=== PATIENT | male | born 1960 | race Caucasian/White ===

== ENCOUNTER 2024-12-28 09:46 | Observation (INO) | payer OTHER ==
[2024-12-28 12:10] LABS: ALT 65 U/L (4-49); African American GFR (CKD) 57 (>60 ml/min/1.73 sqM); Albumin 3.5 g/dL (3.5-5.0); Anion Gap 8 mmol/L; Blood Urea Nitrogen 37 mg/dL (9-20); Calcium 8.6 mg/dL (8.4-10.2); Carbon Dioxide 32 mmol/L (22-30); Chloride 93 mmol/L (98-107); Glucose 92 mg/dL (74-99); Non-African American GFR(CKD) 49 (>60 ml/min/1.73 sqM); Sodium 133 mmol/L (137-145); Total Bilirubin 1.8 mg/dL (0.2-1.3); Total Protein 6.5 g/dL (6.3-8.2)
[2024-12-28 12:13] LABS: AST 76 U/L (17-59); Alkaline Phosphatase 67 U/L (38-126); Potassium 3.9 mmol/L (3.5-5.1)
[2024-12-28 12:14] LABS: INR 1.1 (<1.2); Partial Thromboplastin Time 24.3 sec (22.0-30.0); Prothrombin Time 11.8 sec (10.0-12.5)
[2024-12-28 12:19] LABS: NT-Pro-B-Type Natriuretic Pept 22 pg/mL
[2024-12-28 12:31] LABS: Influenza A Detected (Not Detectd); Influenza B Not Detected (Not Detectd); RSV Not Detected (Not Detectd)
[2024-12-28 12:33] LABS: HCT 45.1 % (39.0-53.0); HGB 15.2 gm/dL (13.0-17.5); MCH 35.6 pg (25.0-35.0); MCHC 33.7 g/dL (31.0-37.0); MCV 105.6 fL (80.0-100.0); Macrocytosis Slight; RBC 4.27 m/uL (4.30-5.90); RDW 12.1 % (11.5-15.5)
--- NOTE | 2024-12-28 13:16 | CT ---
EXAMINATION TYPE: CT brain wo con DATE OF EXAM: 12/28/2024 1:08 PM COMPARISON: None. CLINICAL INDICATION: Male, 64 years old with history of hallucinations, balance issue, HALLUCINATIONS , BALANCE ISSUES TECHNIQUE: Brain: Axial CT images of the brain were obtained with coronal and sagittal reformats created and rev iewed. Contrast used: None. Oral contrast used: None. CT DLP: 1319.10 mGycm, Automated exposure control for dose reduction was used. FINDINGS: Brain: Extra-axial spaces: No abnormal extra-axial fluid collections. Ventricular system: Dilatation in proportion to cerebral atrophy. Cerebral parenchyma: Cerebral atrophy. No acute intraparenchymal hemorrhage or mass effect. The méndez -white junction is well differentiated. Scattered hypoattenuating areas are seen within the white mat ter. Cerebellum: Unremarkable. Mass effect: No evidence of midline shift. Intracranial vasculature: Atherosclerotic calcifications of the intracranial vessels. Soft tissues: Normal. Calvarium/osseous structures: No depressed skull fracture. Paranasal sinuses and mastoid air cells: Mild scattered paranasal sinus disease. Visualized orbits: Orbital contents are intact. IMPRESSION: 1. No acute intracranial process. 2. Nonspecific white matter changes, likely secondary to chronic small vessel ischemic disease. [facility], , 12/28/2024 1:13 PM
--- NOTE | 2024-12-28 13:39 | XR ---
EXAMINATION TYPE: XR chest 2V DATE OF EXAM: 12/28/2024 1:35 PM COMPARISON: None TECHNIQUE: XR chest 2V Frontal and lateral views of the chest. CLINICAL INDICATION:Male, 64 years old with history of difficulty breathing; FINDINGS: Lungs/Pleura: There is no evidence of pleural effusion, focal consolidation, or pneumothorax. Pulmonary vascularity: Unremarkable. Heart/mediastinum: Cardiomediastinal silhouette is prominent in size. Musculoskeletal: No acute osseous pathology. IMPRESSION: No acute cardiopulmonary disease/process. [facility], , 12/28/2024 1:36 PM
[2024-12-28 14:35] LABS: Eosinophils # (M) 0.18 k/uL (0-0.7); Lymphocytes # (M) 0.69 k/uL (1.0-4.8); Monocytes # (M) 0.42 k/uL (0-1.0); Neutrophils # (M) 1.71 k/uL (1.3-7.7); Neutrophils % (M) 57 %; Nucleated Red Blood Cells 0 /100 WBC (0-0); Total Cells Counted 100
[2024-12-28 14:39] LABS: Platelet Count 58 k/uL (150-450)
[2024-12-28] MEDS ORDERED: ACETAMINOPHEN TAB 325 MG TAB PO PRN (15:16)
[2024-12-28] MEDS ORDERED: NALOXONE 0.4 MG/ML 1 ML VIAL IV PRN (15:16)
--- NOTE | 2024-12-28 15:16 | ED ---
SOB HPI - General Chief Complaint: Shortness of Breath Stated Complaint: confusion Time Seen by Provider: 12/28/24 10:00 Source: patient, EMS Mode of arrival: EMS Limitations: no limitations - History of Present Illness Initial Comments: 64-year-old male with past medical history of alcohol abuse, diabetes who presents the emergency department from [place]. Patient is coming in with weakness, altered mental status and cold symptoms. Patient reports for the past day he has had cough, congestion and shortness of breath. He is also reported to weakness, balance issues and falling. Patient admits that he last drank 1 week and 1 day ago. He has been having visual hallucinations. He denies fevers. No head injuries. No headache. Oxygen was reported to be 90% with increased work of breathing. Patient denies nausea, vomiting or diarrhea. No other alleviating, precipitating or modifying factors - Related Data Home Medications Medication Instructions Recorded Confirmed Acetaminophen Tab [Tylenol] 650 mg PO Q6H PRN 12/28/24 12/28/24 Atorvastatin [Lipitor] 10 mg PO HS 12/28/24 12/28/24 Calcium Phos/D3/Magnesium/Zinc 1 tab PO TID PRN 12/28/24 12/28/24 [Dvszjbw-Lia-Hfbs-Vitamin D3] Chlorpheniramine Maleate 4 mg PO Q4H PRN 12/28/24 12/28/24 [Chlor-Trimeton] Citalopram Hydrobromide [CeleXA] 40 mg PO DAILY 12/28/24 12/28/24 Gabapentin See Taper PO DIRECTED 12/28/24 12/28/24 Gabapentin [Neurontin] 300 mg PO DIRECTED 12/28/24 12/28/24 Ibuprofen [Motrin Ib] 600 mg PO Q6H PRN 12/28/24 12/28/24 LORazepam [Ativan] 1 - 2 mg PO Q4-6H PRN 12/28/24 12/28/24 Loperamide [Imodium] 4 mg PO QID PRN 12/28/24 12/28/24 Losartan-Hctz 50-12.5 mg [Hyzaar 1 tab PO DAILY 12/28/24 12/28/24 50-12.5] Melatonin 10 mg PO HS 12/28/24 12/28/24 Multivitamins, Thera [Multivitamin 1 tab PO DAILY 12/28/24 12/28/24 (formulary)] Mylanta 30 ml PO Q4H PRN 12/28/24 12/28/24 Thiamine [Vitamin B-1] 100 mg PO DAILY 12/28/24 12/28/24 atenoloL [Tenormin] 50 mg PO BID 12/28/24 12/28/24 busPIRone HCl [Buspar] 5 mg PO TID 12/28/24 12/28/24 metFORMIN HCL 1,000 mg PO BID 12/28/24 12/28/24 ondansetron HCL [Zofran] 8 mg PO Q6H PRN 12/28/24 12/28/24 traZODone HCL [Desyrel] 50 - 150 mg PO HS PRN 12/28/24 12/28/24 Previous Rx's Medication Instructions Recorded Albuterol Inhaler [Ventolin Hfa 1 - 2 puff INHALATION Q6H PRN #1 12/29/24 Inhaler] each predniSONE [Deltasone] 40 mg PO DAILY 5 Days #10 tab 12/29/24 Ipratropium-Albuterol Nebulize 3 ml INHALATION RT-Q2H PRN each 12/31/24 [Duoneb 0.5 mg-3 mg/3 ml Soln] Oseltamivir [Tamiflu] 75 mg PO BID #3 cap 12/31/24 Allergies Allergy/AdvReac Type Severity Reaction Status Date / Time No Known Allergies Allergy Verified 12/28/24 10:26 Review of Systems ROS Statement: Those systems with pertinent positive or pertinent negative responses have been documented in the HPI. ROS Other: All systems not noted in ROS Statement are negative. Past Medical History Past Medical History: Diabetes Mellitus Additional Past Medical History / Comment(s): DB type 2 History of Any Multi-Drug Resistant Organisms: None Reported Additional Past Surgical History / Comment(s): right ankle surgery. hernia Past Psychological History: Anxiety, Depression, PTSD Smoking Status: Never smoker Past Alcohol Use History: Heavy Past Drug Use History: Marijuana General Exam Limitations: no limitations General appearance: alert, other (Fatigued) Head exam: Present: atraumatic, normocephalic, normal inspection Eye exam: Present: normal appearance, PERRL, EOMI. Absent: scleral icterus, conjunctival injection, periorbital swelling ENT exam: Present: mucous membranes dry Respiratory exam: Present: wheezes Cardiovascular Exam: Present: regular rate, normal rhythm, normal heart sounds. Absent: systolic murmur, diastolic murmur, rubs, gallop, clicks GI/Abdominal exam: Present: soft, normal bowel sounds. Absent: distended, tenderness, guarding, rebound, rigid Psychiatric exam: Present: flat affect Skin exam: Present: warm, dry, intact, normal color. Absent: rash Course Vital Signs 12/28/24 12/28/24 12/28/24 09:50 10:03 10:06 Temperature 99.0 F Pulse Rate 84 82 Respiratory 16 24 22 Rate Blood Pressure 105/67 121/78 O2 Sat by Pulse 96 96 Oximetry 12/28/24 12/28/24 12/28/24 11:39 14:25 15:46 Temperature 98.6 F 98.9 F Pulse Rate 79 80 92 Respiratory 17 16 17 Rate Blood Pressure 116/69 114/71 O2 Sat by Pulse 93 L 95 91 L Oximetry 12/28/24 12/28/24 12/28/24 17:00 17:08 18:26 Temperature Pulse Rate 80 84 81 Respiratory 16 Rate Blood Pressure 113/61 O2 Sat by Pulse 91 L Oximetry 12/28/24 12/28/24 12/28/24 19:54 20:00 20:51 Temperature Pulse Rate 84 81 98 Respiratory 18 18 20 Rate Blood Pressure 120/85 O2 Sat by Pulse 92 L Oximetry 12/28/24 22:07 Temperature 97.3 F L Pulse Rate 82 Respiratory 18 Rate Blood Pressure 156/86 O2 Sat by Pulse 93 L Oximetry Medical Decision Making - Medical Decision Making Was pt. sent in by a medical professional or institution (, PA, LEAD MANUFACTURING ENGINEERING TECH, urgent care, hospital, or correction...) When possible be specific @ -Patient sent in from [place] Did you speak to anyone other than the patient for history (EMS, parent, family, police, friend...)? What history was obtained from this source @ -Spoke with EMS for history Did you review nursing and triage notes (agree or disagree)? Why? @ -I reviewed and agree with nursing and triage notes Were old charts reviewed (outside hosp., previous admission, EMS record, old EKG, old radiological studies, urgent care reports/EKG's, correction records)? Report findings @ -Reviewed the paperwork that accompanied the patient from [place] Differential Diagnosis (chest pain, altered mental status, abdominal pain women, abdominal pain men, vaginal bleeding, weakness, fever, dyspnea, syncope, headache, dizziness, GI bleed, back pain, seizure, CVA, palpatations, mental health, musculoskeletal)? @ -Differential Dyspnea: Coronary syndrome, arrhythmia, tamponade, asthma, COPD, pulmonary embolism, pneumonia, pneumothorax, pulmonary effusion, anaphylaxis, diabetic ketoacidosis, flailed chest, pulmonary contusion, diaphragmatic rupture, anemia, neuromuscular, this is not meant to be an all-inclusive list. EKG interpreted by me (3pts min.). @ -Yes and demonstrates sinus rhythm with a rate of 80. FL interval 168. QRS 93. QTc of 418. No acute ST segment elevations or depressions X-rays interpreted by me (1pt min.). @ -Yes which demonstrates no acute process CT interpreted by me (1pt min.). @ -Yes which demonstrates no acute process U/S interpreted by me (1pt. min.). @ -None done What testing was considered but not performed or refused? (CT, X-rays, U/S, labs)? Why? @ -None What meds were considered but not given or refused? Why? @ -None Did you discuss the management of the patient with other professionals (mikayla toledo i.eMelissa Bravo, PA, LEAD MANUFACTURING ENGINEERING [employer]CH, lab, RT, psych nurse, social work lecturer, orthotic fitter, teacher, career services officer, family preservation caseworker)? Give summary @ -Spoke with John [facility] for admission Was smoking cessation discussed for >3mins.? @ -No Was critical care preformed (if so, how long)? @ -No Were there social determinants of health that impacted care today? How? (Homelessness, low income, unemployed, alcoholism, drug addiction, transportation, low edu. Level, literacy, decrease access to med. care, residential, rehab)? @ -Patient is currently in rehab Was there de-escalation of care discussed even if they declined (Discuss DNR or withdrawal of care, Hospice)? DNR status @ -No What co-morbidities impacted this encounter? (DM, HTN, Smoking, COPD, CAD, Cancer, CVA, ARF, Chemo, Hep., AIDS, mental health diagnosis, sleep apnea, morbid obesity)? @ -Alcohol abuse, depression Was patient admitted / discharged? Hospital course, mention meds given and route, prescriptions, significant lab abnormalities, going to OR and other pertinent info. @ -Upon arrival patient seen and evaluated in bed 20. Thorough history and physical exam was performed. He is reporting hallucinations and paperwork states altered mental status. Patient is able to provide an adequate history. IV is established and laboratory studies are conducted. Chest x-ray was performed. CT the brain was performed as the patient is reporting h allucinations and ataxia. Laboratory studies do reveal that the patient is influenza A positive. He was given Tamiflu, breathing treatments and steroids. I do feel that the patient should be admitted for at least overnight observation for his work of breathing. Patient was agreeable to this. Spoke with John from [facility] for the admission Undiagnosed new problem with uncertain prognosis? @ -No Drug Therapy requiring intensive monitoring for toxicity (Heparin, Nitro, Insulin, Cardizem)? @ -No Were any procedures done? @ -No Diagnosis/symptom? @ -Acute respiratory insufficiency, influenza A, history of EtOH abuse with withdrawal Acute, or Chronic, or Acute on Chronic? @ -Acute Uncomplicated (without systemic symptoms) or Complicated (systemic symptoms)? @ -Complicated Side effects of treatment? @ -No Exacerbation, Progression, or Severe Exacerbation? @ -No Poses a threat to life or bodily function? How? (Chest pain, [place], [place], pneumonia, PE, COPD, DKA, ARF, appy, cholecystitis, CVA, Diverticulitis, Homicidal, Suicidal, threat to staff... and all critical care pts) @ -No - Lab Data Result diagrams: 12/30/24 03:20 12/30/24 03:20 Lab Results 12/28/24 12/28/24 12/28/24 Range/Units 11:34 11:34 11:34 WBC 3.0 L (3.8-10.6) k/uL RBC 4.27 L (4.30-5.90) m/uL Hgb 15.2 (13.0-17.5) gm/dL Hct 45.1 (39.0-53.0) % MCV 105.6 H (80.0-100.0) fL MCH 35.6 H (25.0-35.0) pg MCHC 33.7 (31.0-37.0) g/dL RDW 12.1 (11.5-15.5) % Plt Count 58 L (150-450) k/uL MPV 10.0 Neutrophils % (Manual) 57 % Lymphocytes % (Manual) 23 % Monocytes % (Manual) 14 % Eosinophils % (Manual) 6 % Neutrophils # (Manual) 1.71 (1.3-7.7) k/uL Lymphocytes # (Manual) 0.69 L (1.0-4.8) k/uL Monocytes # (Manual) 0.42 (0-1.0) k/uL Eosinophils # (Manual) 0.18 (0-0.7) k/uL Nucleated RBCs 0 (0-0) /100 WBC Manual Slide Review Performed Macrocytosis Slight PT 11.8 (10.0-12.5) sec INR 1.1 (<1.2) APTT 24.3 (22.0-30.0) sec Sodium 133 L (137-145) mmol/L Potassium 3.9 (3.5-5.1) mmol/L Chloride 93 L (98-107) mmol/L Carbon Dioxide 32 H (22-30) mmol/L Anion Gap 8 mmol/L BUN 37 H (9-20) mg/dL Creatinine 1.49 H (0.66-1.25) mg/dL Est GFR (CKD-EPI)AfAm 57 (>60 ml/min/1.73 sqM) Est GFR (CKD-EPI)NonAf 49 (>60 ml/min/1.73 sqM) Glucose 92 (74-99) mg/dL Plasma Lactic Acid [place] (0.7-2.0) mmol/L Calcium 8.6 (8.4-10.2) mg/dL Total Bilirubin 1.8 H (0.2-1.3) mg/dL AST 76 H (17-59) U/L ALT 65 H (4-49) U/L Alkaline Phosphatase 67 (38-126) U/L Troponin I (0.000-0.034) ng/mL NT-Pro-B Natriuret Pep 22 pg/mL Total Protein 6.5 (6.3-8.2) g/dL Albumin 3.5 (3.5-5.0) g/dL Influenza Type A (PCR) (Not Detectd) Influenza Type B (PCR) (Not Detectd) RSV (PCR) (Not Detectd) SARS-CoV-2 (PCR) (Not Detectd) 12/28/24 12/28/24 12/28/24 Range/Units 11:34 11:34 11:34 WBC (3.8-10.6) k/uL RBC (4.30-5.90) m/uL Hgb (13.0-17.5) gm/dL Hct (39.0-53.0) % MCV (80.0-100.0) fL MCH (25.0-35.0) pg MCHC (31.0-37.0) g/dL RDW (11.5-15.5) % Plt Count (150-450) k/uL MPV Neutrophils % (Manual) % Lymphocytes % (Manual) % Monocytes % (Manual) % Eosinophils % (Manual) % Neutrophils # (Manual) (1.3-7.7) k/uL Lymphocytes # (Manual) (1.0-4.8) k/uL Monocytes # (Manual) (0-1.0) k/uL Eosinophils # (Manual) (0-0.7) k/uL Nucleated RBCs (0-0) /100 WBC Manual Slide Review Macrocytosis PT (10.0-12.5) sec INR (<1.2) APTT (22.0-30.0) sec Sodium (137-145) mmol/L Potassium (3.5-5.1) mmol/L Chloride (98-107) mmol/L Carbon Dioxide (22-30) mmol/L Anion Gap mmol/L BUN (9-20) mg/dL Creatinine (0.66-1.25) mg/dL Est GFR (CKD-EPI)AfAm (>60 ml/min/1.73 sqM) Est GFR (CKD-EPI)NonAf (>60 ml/min/1.73 sqM) Glucose (74-99) mg/dL Plasma Lactic Acid [place] 1.3 (0.7-2.0) mmol/L Calcium (8.4-10.2) mg/dL Total Bilirubin (0.2-1.3) mg/dL AST (17-59) U/L ALT (4-49) U/L Alkaline Phosphatase (38-126) U/L Troponin I <0.012 (0.000-0.034) ng/mL NT-Pro-B Natriuret Pep pg/mL Total Protein (6.3-8.2) g/dL Albumin (3.5-5.0) g/dL Influenza Type A (PCR) Detected A (Not Detectd) Influenza Type B (PCR) Not Detected (Not Detectd) RSV (PCR) Not Detected (Not Detectd) SARS-CoV-2 (PCR) Not Detected (Not Detectd) Disposition Clinical Impression: Influenza A, Acute respiratory insufficiency, Acute encephalopathy, Visual hallucinations Disposition: ADMITTED IP TO THIS HOSP Condition: Stable Is patient prescribed a controlled substance at d/c from ED?: No Time of Disposition: 15:16 Decision to Admit Reason: Admit from EC Decision Date: 12/28/24 Decision Time: 15:16
[2024-12-28] MEDS ORDERED: ONDANSETRON 4 MG TAB PO PRN (15:18)
[2024-12-28] MEDS: SODIUM CHLORIDE 0.9% 1,000 ML IV SCH (15:43)
[2024-12-28] MEDS: busPIRone HCl 5 MG TAB PO SCH (15:45)
[2024-12-28] MEDS: OSELTAMIVIR 75 MG CAP PO SCH (15:45)
[2024-12-28] MEDS: IPRATROPIUM-ALBUTEROL 3 ML NEB INHALATION SCH (17:00)
--- NOTE | 2024-12-28 17:42 | P.HPIM ---
History of Present Illness H&P Date: 12/28/24 History of present illness; 64-year-old man with PMH of alcohol abuse, hypertension, hyperlipidemia, anxiety/depression and bsw-nxemybx-paxcpntfz diabetes mellitus presents emergency department from [place]. He is complaining of worsening shortness of breath and flulike symptoms and associated weakness. He states he still began his chest congestion progressively worsened into more and more d ifficulty breathing. He endorses having had his last drink a little over a week ago. Prior to arrival his SpO2 was reported to have been 90% with increased work of breathing. On arrival he was found to be influenza A positive. He denies any fevers, head injuries, headache, nausea, vomiting or diarrhea. When seen at bedside today, he is sitting in the bed, breathing without the use of any supplemental oxygen saturating in the 90%'s. States that he has just "not been feeling well close" for the past few days. With no acute complaints at present time. Labratory review: -WBCs 3.0, hemoglobin 15.2, hematocrit 45.1, MCV 105.6, platelet 58; sodium 133, potassium 3.9, chloride 93, bicarb 32, BUN 37, creatinine 1.49, total bilirubin 1.8, AST 76, ALT 65, alkaline phosphatase 67; troponin <0.012, BNP 22 -Influenza A positive Imaging: -Chest x-ray done in the ER independently interpreted shows no increased pulmonary vascularity -Brain CT showed no acute intracranial process; nonspecific white matter changes likely secondary to chronic small vessel ischemic disease -EKG done in the ER showed heart rate of 80, sinus rhythm Vitals: On arrival: Blood pressure 105/67, heart rate 84, respiratory rate 16, SpO2 96% on 3 L nasal cannula Currently: Blood pressure 116/69, heart rate 79, respiratory rate 17, SpO2 95% on room air Patient admitted to internal medicine service REVIEW OF SYSTEMS: Pertinent positives and negatives noted in HPI. The rest of the 14-point review of systems is negative. Physical Exam: General: nontoxic, no distress, appears at stated age Derm: warm, dry, intact Head: atraumatic, normocephalic, symmetric Eyes: EOMI, anicteric sclera Mouth: no lip lesion, mucus membranes moist Cardiovascular: S1 S2 reg, no murmur, rubs, or gallops Lungs: Breath sounds heard bilaterally, diminished Abdominal: Minimal tenderness to palpation in the right lower quadrant Extremities: no gross muscle atrophy, no edema, no contractures Neuro: Alert, Oriented, CNII-XII grossly intact, gait normal Psych: well appearing, appropriate affect Assessment and plan 64-year-old man with PMH of alcohol abuse and olt-ovllubd-ahmqwxhhc diabetes mellitus presents with increasing shortness of breath and weakness. #Acute hypoxic respiratory failure, likely secondary to influenza A infection -Was noted to be saturating in the high 80slow 90% prior to arrival -On arrival placed on 3 L nasal cannula, saturations increased now on room air -Initiate Tamiflu 75 mg twice daily #Acute kidney injury #Hyponatremia #Hypochloremia -Creatinine 1.49, with no known baseline -Continue NS 75 cc/h -Hold home losartanHCTZ 50-12.5 mg -Continue to monitor BMP #Transaminitis -Total bilirubin 1.8, AST 76, ALT 60 -Gallbladder ultrasound ordered -Continue to monitor CMP #History of alcohol abuse #Macrocytosis, likely secondary to above #Leukopenia, likely secondary above #Thrombocytopenia, likely secondary to above - Give daily thiamine and folic acid and multivitamin - monitor daily electrolytes - cardiac monitoring #Non-insulin diabetes mellitus Holding oral diabetes medications Begin Accu-Cheks and low-dose sliding scale, monitor for hypoglycemia HbA1c pending Chronic: #Hypertension #Hyperlipidemia #Anxiety/depression -Resume home medications GI prophylaxis: None DVT prophylaxis: None The patient is admitted with an anticipated more than than 2 midnight stay for evaluation of CODE STATUS: Full code Discussed with: Patient Anticipated discharge place: Pending clinical course Dictation was produced using [employer] dictation software. please excuse any g rammatical, word or spelling errors. I have seen and evaluated the patient today. Discussed with the resident and agree with the residents finding and plan as documented in the resident's note. Changes highlighted in blue font. Past Medical History Past Medical History: Diabetes Mellitus Additional Past Medical History / Comment(s): DB type 2 History of Any Multi-Drug Resistant Organisms: None Reported Additional Past Surgical History / Comment(s): right ankle surgery. hernia Past Psychological History: Anxiety, Depression, PTSD Smoking Status: Never smoker Past Alcohol Use History: Heavy Past Drug Use History: Marijuana Medications and Allergies Home Medications Medication Instructions Recorded Confirmed Type Acetaminophen Tab [Tylenol] 650 mg PO Q6H PRN 12/28/24 12/28/24 History Atorvastatin [Lipitor] 10 mg PO HS 12/28/24 12/28/24 History Calcium Phos/D3/Magnesium/Zinc 1 tab PO TID PRN 12/28/24 12/28/24 History [Nlekrwy-Xti-Ercm-Vitamin D3] Chlorpheniramine Maleate 4 mg PO Q4H PRN 12/28/24 12/28/24 History [Chlor-Trimeton] Citalopram Hydrobromide [CeleXA] 40 mg PO DAILY 12/28/24 12/28/24 History Gabapentin See Taper PO DIRECTED 12/28/24 12/28/24 History Gabapentin [Neurontin] 300 mg PO DIRECTED 12/28/24 12/28/24 History Ibuprofen [Motrin Ib] 600 mg PO Q6H PRN 12/28/24 12/28/24 History LORazepam [Ativan] 1 - 2 mg PO Q4-6H PRN 12/28/24 12/28/24 History Loperamide [Imodium] 4 mg PO QID PRN 12/28/24 12/28/24 History Losartan-Hctz 50-12.5 mg [Hyzaar 1 tab PO DAILY 12/28/24 12/28/24 History 50-12.5] Melatonin 10 mg PO HS 12/28/24 12/28/24 History Multivitamins, Thera [Multivitamin 1 tab PO DAILY 12/28/24 12/28/24 History (formulary)] Mylanta 30 ml PO Q4H PRN 12/28/24 12/28/24 History Thiamine [Vitamin B-1] 100 mg PO DAILY 12/28/24 12/28/24 History atenoloL [Tenormin] 50 mg PO BID 12/28/24 12/28/24 History busPIRone HCl [Buspar] 5 mg PO TID 12/28/24 12/28/24 History metFORMIN HCL 1,000 mg PO BID 12/28/24 12/28/24 History ondansetron HCL [Zofran] 8 mg PO Q6H PRN 12/28/24 12/28/24 History traZODone HCL [Desyrel] 50 - 150 mg PO HS PRN 12/28/24 12/28/24 History Allergies Allergy/AdvReac Type Severity Reaction Status Date / Time No Known Allergies Allergy Verified 12/28/24 10:26 Physical Exam Vitals: Vital Signs Temp Pulse Resp BP Pulse Ox 12/28/24 14:25 98.9 F 80 16 95 12/28/24 11:39 98.6 F 79 17 116/69 93 L 12/28/24 10:06 82 22 121/78 96 12/28/24 10:03 24 12/28/24 09:50 99.0 F 84 16 105/67 96 Intake and Output 12/28/24 12/28/24 12/28/24 06:59 14:59 22:59 Other: Weight 108.862 kg Results CBC & Chem 7: 12/28/24 11:34 12/28/24 11:34 Labs: Abnormal Lab Results - Last 24 Hours (Table) 12/28/24 12/28/24 12/28/24 Range/Units 11:34 11:34 11:34 WBC 3.0 L (3.8-10.6) k/uL RBC 4.27 L (4.30-5.90) m/uL MCV 105.6 H (80.0-100.0) fL MCH 35.6 H (25.0-35.0) pg Plt Count 58 L (150-450) k/uL Lymphocytes # (Manual) 0.69 L (1.0-4.8) k/uL Sodium 133 L (137-145) mmol/L Chloride 93 L (98-107) mmol/L Carbon Dioxide 32 H (22-30) mmol/L BUN 37 H (9-20) mg/dL Creatinine 1.49 H (0.66-1.25) mg/dL Total Bilirubin 1.8 H (0.2-1.3) mg/dL AST 76 H (17-59) U/L ALT 65 H (4-49) U/L Influenza Type A (PCR) Detected A (Not Detectd)
[2024-12-28 18:30] LABS: Glucose,Whole Blood 89 mg/dL (70-110)
[2024-12-28] MEDS: INSULIN LISPRO (HumaLOG) 100 UNIT/ML 10 mL VL SQ SCH (18:35)
--- NOTE | 2024-12-28 19:05 | US ---
EXAMINATION TYPE: US gallbladder DATE OF EXAM: 12/28/2024 COMPARISON: NONE CLINICAL INDICATION: Male, 64 years old with history of transaminitis; Elevated labs, ETOH abuse TECHNIQUE: Grayscale and color Doppler imaging of the right upper quadrant was performed. FINDINGS: EXAM MEASUREMENTS: Liver Length: 18.1 cm Gallbladder Wall: 0.2 cm CBD: 0.5 cm Right Kidney: 12.7 x 5.7 x 5.6 cm CONSTRUCTION DRIVER NOTES: Pancreas: Obscured by bowel gas Liver: Enlarged, Heterogeneous, coarse, lobulated echotexture Gallbladder: wnl Evidence for sonographic Ritchie's sign: No CBD: wnl Right Kidney: No evidence of hydro IMPRESSION: 1. Hepatomegaly with mild fatty infiltration of the liver. [facility], , 12/28/2024 7:03 PM
[2024-12-28] MEDS: ATORVASTATIN 10 MG TAB PO SCH (20:34)
[2024-12-28] MEDS: atenoloL 50 MG TAB PO SCH (20:34)
[2024-12-28] MEDS: HEPARIN SODIUM,PORCINE 5,000 UNIT/ML 1 ML VIAL SQ SCH (20:34)
[2024-12-28 20:39] LABS: Glucose,Whole Blood 97 mg/dL (70-110)
[2024-12-28] MEDS ORDERED: NON FORMULARY DRUG (Metformin Hcl [Metformin Hcl] 1,000 MG Tablet) PO SCH (21:00)
[2024-12-29 04:49] LABS: ALT 51 U/L (4-49); AST 54 U/L (17-59); African American GFR (CKD) >90 (>60 ml/min/1.73 sqM); Albumin 3.2 g/dL (3.5-5.0); Albumin/Globulin Ratio 1.2; Alkaline Phosphatase 76 U/L (38-126); Anion Gap 11 mmol/L; Blood Urea Nitrogen 31 mg/dL (9-20); Calcium 8.2 mg/dL (8.4-10.2); Carbon Dioxide 28 mmol/L (22-30); Chloride 94 mmol/L (98-107); Globulin 2.6 g/dL; Glucose 80 mg/dL (74-99); Non-African American GFR(CKD) >90 (>60 ml/min/1.73 sqM); Sodium 133 mmol/L (137-145); Total Bilirubin 1.8 mg/dL (0.2-1.3); Total Protein 5.8 g/dL (6.3-8.2)
[2024-12-29 06:15] LABS: Glucose,Whole Blood 92 mg/dL (70-110)
[2024-12-29] MEDS: FOLIC ACID 1 MG TAB PO SCH (08:27)
[2024-12-29] MEDS: CITALOPRAM HYDROBROMIDE 20 MG TAB PO SCH (08:27)
[2024-12-29] MEDS: THIAMINE 100 MG TAB PO SCH (08:27)
[2024-12-29] MEDS: MULTIVITAMINS, THERA 1 EACH TAB PO SCH (08:27)
[2024-12-29] MEDS: POTASSIUM CHLORIDE ER 20 MEQ TAB.ER PO SCH (08:27)
[2024-12-29] MEDS ORDERED: LOSARTAN-HCTZ 50-12.5 MG 1 EACH TAB PO SCH (09:00)
[2024-12-29] MEDS ORDERED: HEPARIN SODIUM,PORCINE 5,000 UNIT/ML 1 ML VIAL SQ SCH (09:00)
[2024-12-29 10:35] LABS: Glucose,Whole Blood 97 mg/dL (70-110)
[2024-12-29 10:53] LABS: Basophils # (A) 0.02 X 10*3/uL (0.00-0.10); Basophils % (A) 0.7 %; Eosinophils # (A) 0.15 X 10*3/uL (0.04-0.35); Eosinophils % (A) 5.1 %; HCT 40.4 % (39.6-50.0); Lymphocytes # (A) 0.92 X 10*3/uL (0.90-5.00); MCH 35.6 pg (27.0-32.0); MCHC 34.7 g/dL (32.0-37.0); MCV 102.8 FL (80.0-97.0); Mean Platelet Volume 12.7 FL (9.5-12.2); Monocytes # (A) 0.44 X 10*3/uL (0.20-1.00); Monocytes % (A) 14.8 %; NRBC Per 100 WBC 0 X 10*3/uL (0.00-0.01); Neutrophils # (A) 1.43 X 10*3/uL (1.80-7.70); Neutrophils % (A) 48.1 %; Platelet Count 56 X 10*3/uL (140-440); RBC 3.93 X 10*6/uL (4.40-5.60); RBC Morphology Normal (Normal); RDW 11.7 % (11.5-14.5); WBC 2.97 X 10*3/uL (4.50-10.00)
[2024-12-29 11:39] LABS: Glucose,Whole Blood 108 mg/dL (70-110)
[2024-12-29] MEDS ORDERED: Magnesium Replacement Protocol 1 EACH MISC MISCELLANE PRN (13:05)
--- NOTE | 2024-12-29 13:40 | P.PN ---
Subjective Progress Note Date: 12/29/24 64-year-old man with PMH of alcohol abuse, hypertension, hyperlipidemia, anxiety/depression and tra-wlpobzv-mbnvpcmcc diabetes mellitus presents emergency department from [place]. He is complaining of worsening shortness of breath and flulike symptoms and associated weakness. He states he still began his chest congestion progressively worsened into more and more difficulty breathing. He endorses having had his last drink a little over a week ago. Prior to arrival his SpO2 was reported to have been 90% with increased work of breathing. On arrival he was found to be influenza A positive. He denies any fevers, head injuries, headache, nausea, vomiting or diarrhea. When seen at bedside today, he is sitting in the bed, breathing without the use of any supplemental oxygen saturating in the 90%'s. States that he has just "not been feeling well close" for the past few days. With no acute complaints at present time. 12/29/24 - Patient seen and examined at bedside today, now up on the 4th floor. No acute events overnight. He was noted to have transaminitis with increased total bilirubin and some generalized right-sided abdominal discomfort on physical exam yesterday. Underwent gallbladder ultrasound which showed better megaly with mild fatty infiltration of the liver. He continues to saturate in the 90% while on room air. Blood pressure remains somewhat soft. Potassium and magnesium both found to be low, administered replacements - will recheck in a.m. REVIEW OF SYSTEMS: Pertinent positives and negatives noted in HPI. Physical Exam: General: nontoxic, no distress, appears at stated age Derm: warm, dry, intact Head: atraumatic, normocephalic, symmetric Eyes: EOMI, anicteric sclera Mouth: no lip lesion, mucus membranes moist Cardiovascular: S1 S2 reg, no murmur, rubs, or gallops Lungs: CTA bilateral, no rales, no accessory muscle use Abdominal: soft, non-tender to palpataion, no appreciable organomegaly Extremities: no gross muscle atrophy, no edema, no contractures Neuro: Alert, Oriented, CNII-XII grossly intact, gait normal Psych: well appearing, appropriate affect Data Received Today: Labs: WBC 2.97, hemoglobin 14, hematocrit 40.4, MCV 102.8, platelet 56; sodium 133, potassium 3.0, magnesium 1.2, chloride 94, BUN 31, creatinine 0.86, calcium 8.2, total bilirubin 1.8, AST 54, ALT 51, alkaline phosphatase 76 Imagining: -Gallbladder ultrasound showed hepatomegaly with mild fatty infiltration of the liver. Assessment and plan 64-year-old man with PMH of alcohol abuse and whz-akckkmc-zhuvobzcs diabetes mellitus presents with increasing shortness of breath and weakness. #Acute hypoxic respiratory failure, likely secondary to influenza A infection -Was noted to be saturating in the high 80slow 90% prior to arrival -On arrival placed on 3 L nasal cannula, saturations increased now on room air -DuoNeb Q4H scheduled -Initiate Tamiflu 75 mg twice daily #Acute kidney injury, resolved #Hyponatremia #Hypochloremia -Creatinine 1.49, with no known baseline -DC IVF and encourage hydration by mouth -Hold home losartanHCTZ 50-12.5 mg -Continue to monitor BMP #Hypokalemia -CMP significant for potassium 3.0 -Given potassium chloride 40 mEq every 2 hour (total of 2 doses) -Recheck BMP/CMP this afternoon and tomorrow #Transaminitis -Total bilirubin 1.8, AST 54, ALT 51 -Gallbladder ultrasound read and reviewed, fatty liver with no gall bladder pat hology -Continue to monitor CMP #History of alcohol abuse #Macrocytosis, likely secondary to above #Leukopenia, likely secondary above #Thrombocytopenia, likely secondary to above - Give daily thiamine and folic acid and multivitamin - monitor daily electrolytes - cardiac monitoring #Hypomagnesemia -Administered 4 mg magnesium sulfate -Recheck BMP and magnesium in the morning #Non-insulin diabetes mellitus Holding oral diabetes medications Begin Accu-Cheks and low-dose sliding scale, monitor for hypoglycemia HbA1c pending Chronic: #Hypertension #Hyperlipidemia #Anxiety/depression -Resume home medications DVT ppx: Lovenox 40 mg subcu daily GI PPx: Protonix 40 mg daily Code status: Full code F: None E: Replete as needed N: Heart healthy diet A: Ambulatory Anticipated discharge place: Pending clinical course Anticipated discharge time: Pending clinical course Dictation was produced using [employer] dictation software. please excuse any grammatical, word or spelling errors. I have seen and evaluated the patient today. Discussed with the resident and agree with the residents finding and plan as documented in the resident's note. Changes highlighted in blue font. Objective - Vital Signs Vital signs: Vital Signs Temp 98.2 F 12/29/24 02:00 Pulse 76 12/29/24 04:40 Resp 18 12/29/24 04:40 BP 98/57 12/29/24 02:00 Pulse Ox 92 L 12/29/24 02:00 FiO2 Intake & Output 12/28/24 12/29/24 12/29/24 18:59 06:59 18:59 Output Total 500 Balance -500 Weight 108.862 kg Output: Urine 500 Other: Voiding Method Toilet - Labs CBC & Chem 7: 12/29/24 04:09 12/29/24 04:09 Labs: Abnormal Lab Results - Last 24 Hours (Table) 12/28/24 12/28/24 12/28/24 Range/Units 11:34 11:34 11:34 WBC 3.0 L (3.8-10.6) k/uL RBC 4.27 L (4.30-5.90) m/uL MCV 105.6 H (80.0-100.0) fL MCH 35.6 H (25.0-35.0) pg Plt Count 58 L (150-450) k/uL Lymphocytes # (Manual) 0.69 L (1.0-4.8) k/uL Sodium 133 L (137-145) mmol/L Potassium (3.5-5.1) mmol/L Chloride 93 L (98-107) mmol/L Carbon Dioxide 32 H (22-30) mmol/L BUN 37 H (9-20) mg/dL Creatinine 1.49 H (0.66-1.25) mg/dL Calcium (8.4-10.2) mg/dL Total Bilirubin 1.8 H (0.2-1.3) mg/dL AST 76 H (17-59) U/L ALT 65 H (4-49) U/L Total Protein (6.3-8.2) g/dL Albumin (3.5-5.0) g/dL Influenza Type A (PCR) Detected A (Not Detectd) 12/29/24 Range/Units 04:09 WBC (3.8-10.6) k/uL RBC (4.30-5.90) m/uL MCV (80.0-100.0) fL MCH (25.0-35.0) pg Plt Count (150-450) k/uL Lymphocytes # (Manual) (1.0-4.8) k/uL Sodium 133 L (137-145) mmol/L Potassium 3.0 L (3.5-5.1) mmol/L Chloride 94 L (98-107) mmol/L Carbon Dioxide (22-30) mmol/L BUN 31 H (9-20) mg/dL Creatinine (0.66-1.25) mg/dL Calcium 8.2 L (8.4-10.2) mg/dL Total Bilirubin 1.8 H (0.2-1.3) mg/dL AST (17-59) U/L ALT 51 H (4-49) U/L Total Protein 5.8 L (6.3-8.2) g/dL Albumin 3.2 L (3.5-5.0) g/dL Influenza Type A (PCR) (Not Detectd)
[2024-12-29] MEDS: MAGNESIUM SULFATE-D5W PMX 1 GM in DEXTROSE/WATER 1 100ML.BAG IVPB SCH (14:24)
[2024-12-29] MEDS: diphenhydrAMINE 25 MG CAP PO PRN (14:24)
[2024-12-29 16:27] LABS: Glucose,Whole Blood 134 mg/dL (70-110)
[2024-12-29 20:57] LABS: Glucose,Whole Blood 105 mg/dL (70-110)
[2024-12-30 04:13] LABS: African American GFR (CKD) >90 (>60 ml/min/1.73 sqM); Anion Gap 7 mmol/L; Blood Urea Nitrogen 16 mg/dL (9-20); Calcium 8.3 mg/dL (8.4-10.2); Carbon Dioxide 29 mmol/L (22-30); Chloride 95 mmol/L (98-107); Glucose 92 mg/dL (74-99); Non-African American GFR(CKD) >90 (>60 ml/min/1.73 sqM); Potassium 3.2 mmol/L (3.5-5.1); Sodium 131 mmol/L (137-145)
[2024-12-30 04:53] LABS: HGB 13.3 gm/dL (13.0-17.5); MCH 34.6 pg (25.0-35.0); MCHC 33.1 g/dL (31.0-37.0); MCV 104.4 fL (80.0-100.0); Macrocytosis Slight; Mean Platelet Volume 10.3; RBC 3.84 m/uL (4.30-5.90); RDW 11.7 % (11.5-15.5); WBC 2.2 k/uL (3.8-10.6)
[2024-12-30] MEDS: POTASSIUM CHLORIDE 10 MEQ in WATER FOR INJECTION 1 100ML.BAG IVPB SCH (04:53)
[2024-12-30 04:55] LABS: Platelet Count 66 k/uL (150-450)
[2024-12-30] MEDS: POTASSIUM CHLORIDE ER 20 MEQ TAB.ER PO STA (04:58)
[2024-12-30 06:23] LABS: Band Neutrophils % 1 %; Eosinophils # (M) 0.11 k/uL (0-0.7); Lymphocytes # (M) 0.73 k/uL (1.0-4.8); Monocytes # (M) 0.46 k/uL (0-1.0); Neutrophils % (M) 40 %; Nucleated Red Blood Cells 0 /100 WBC (0-0); Total Cells Counted 100
[2024-12-30 06:42] LABS: Glucose,Whole Blood 100 mg/dL (70-110)
[2024-12-30 11:39] LABS: Glucose,Whole Blood 124 mg/dL (70-110)
--- NOTE | 2024-12-30 14:07 | P.PN ---
Subjective Progress Note Date: 12/30/24 64 year old M with PMH of EtOH abuse, HTN, anxiety and depression, DM presents from [place] for shortness of breath. In the ED he underwent extensive evaluation. Blood pressure 105/67, heart rate 84, respiratory rate 16, SpO2 96% on 3 L nasal cannula. WBCs 3.0, hemoglobin 15.2, hematocrit 45.1, MCV 105.6, platelet 58; sodium 133, potassium 3.9, chloride 93, bicarb 32, BUN 37, creatinine 1.49, total bilirubin 1.8, AST 76, ALT 65, alkaline phosphatase 67; troponin <0.012, BNP 22. Flu A positive. Chest x-ray done in the ER shows no increased pulmonary vascularity. Brain CT showed no acute intracranial process. EKG done in the ER showed heart rate of 80, sinus rhythm. Admitted for further workup and management. Started on bronchodilators, IVF and Tamiflu. Respiratory status and renal function improved. Liver US showed no gall bladder pathology and fatty infiltration of the liver. 12/30 Patient was seen and examined. Breathing improved. CBC and BMP significant for WBC 2.2, RBC 3.84, MCV 104.4, Plt 66, Na 131, K 3.2, Cl 95, Ca 8.3. Mag 1.6. General: non toxic, no distress, appears at stated age Derm: warm, dry Head: atraumatic, normocephalic, symmetric Eyes: EOMI, no lid lag, anicteric sclera Mouth: no lip lesion, mucus membranes moist Cardiovascular: S1S2 reg, no murmur Lungs: Expiratory wheezing bilateral, no rhonchi, no rales , no accessory muscle use Abdominal: soft, nontender to palpation, no guarding, no appreciable organomegaly Ext: no gross muscle atrophy, no edema, no contractures Neuro: no focal neuro deficits Psych: Alert, oriented, appropriate affect Based on my assessment of this patient, this patient meets a high complexity level of care. Acute on chronic hypoxic respiratory failure due to COPD exacerbation + Flu A: DuoNeb Q4H scheduled. Tamiflu 75 mg PO BID. Supplemental O2 to maintain O2 sat > 92%. Telemetry monitoring. Hypomagnesemia: Mag suflate 2g IV x 1. Hypokalemia: KCl 40 meq PO x 1. Transaminitis, Macrocytosis, Leukopenia and Thrombocytopenia likely related to EtOH abuse. History of alcohol abuse: Not in withdrawal. DM: ISS with Accuchecks ACHS and hypoglycemic precautions. Hypertension: Atenolol 50 mg PO BID. Hyperlipidemia: Lipitor 10 mg PO QHS. Resolved: ELOY CODE STATUS: FULL CODE DVT Prophylaxis: Heparin GI Prophylaxis: Designated medical POA if patient is not able to make medical decisions for themselves: I have reviewed the following vmware consultant notes: I have reviewed the results of the following tests: CBC, BMP, Mag. I have ordered the following tests: BMP and Mag in the AM. I have discussed the care of this patient with the following independent historian: TAJ. I have independently interpreted the following test below: I have discussed the management of this patient with the following physician: Objective - Vital Signs Vital signs: Vital Signs Temp 98.4 F 12/30/24 06:55 Pulse 74 12/30/24 12:17 Resp 17 12/30/24 06:55 BP 147/77 12/30/24 06:55 Pulse Ox 96 12/30/24 06:55 FiO2 Intake & Output 12/29/24 12/30/24 12/30/24 18:59 06:59 18:59 Output Total 540 Balance -540 Output: Urine 540 Other: Voiding Method Toilet Urinal - Labs CBC & Chem 7: 12/30/24 03:20 12/30/24 03:20 Labs: Abnormal Lab Results - Last 24 Hours (Table) 12/29/24 12/30/24 12/30/24 Range/Units 16:26 03:20 03:20 WBC 2.2 L (3.8-10.6) k/uL RBC 3.84 L (4.30-5.90) m/uL MCV 104.4 H (80.0-100.0) fL Plt Count 66 L (150-450) k/uL Neutrophils # (Manual) 0.90 L (1.3-7.7) k/uL Lymphocytes # (Manual) 0.73 L (1.0-4.8) k/uL Sodium 131 L (137-145) mmol/L Potassium 3.2 L (3.5-5.1) mmol/L Chloride 95 L (98-107) mmol/L POC Glucose (mg/dL) 134 H (70-110) mg/dL Calcium 8.3 L (8.4-10.2) mg/dL 12/30/24 Range/Units 11:38 WBC (3.8-10.6) k/uL RBC (4.30-5.90) m/uL MCV (80.0-100.0) fL Plt Count (150-450) k/uL Neutrophils # (Manual) (1.3-7.7) k/uL Lymphocytes # (Manual) (1.0-4.8) k/uL Sodium (137-145) mmol/L Potassium (3.5-5.1) mmol/L Chloride (98-107) mmol/L POC Glucose (mg/dL) 124 H (70-110) mg/dL Calcium (8.4-10.2) mg/dL
[2024-12-30] MEDS: MAGNESIUM SULFATE-D5W PMX 1 GM in DEXTROSE/WATER 1 100ML.BAG IVPB SCH (14:49)
[2024-12-30 17:25] LABS: Glucose,Whole Blood 133 mg/dL (70-110)
[2024-12-30] MEDS ORDERED: IPRATROPIUM-ALBUTEROL 3 ML NEB INHALATION PRN (20:06)
[2024-12-30 20:26] LABS: Glucose,Whole Blood 133 mg/dL (70-110)
[2024-12-30] MEDS: LORazepam 1 MG TAB PO PRN (21:23)
[2024-12-31 06:24] LABS: Glucose,Whole Blood 96 mg/dL (70-110)
[2024-12-31 08:02] VITALS: BP 162/89; RESP 18; TEMP 98
[2024-12-31] MEDS: IPRATROPIUM-ALBUTEROL 3 ML NEB INHALATION SCH (10:38)
[2024-12-31 10:47] VITALS: PULSE 77
[2024-12-31 11:19] LABS: Glucose,Whole Blood 102 mg/dL (70-110)
--- NOTE | 2024-12-31 16:32 | P.DS ---
Providers Date of admission: 12/28/24 15:17 Expected date of discharge: 12/31/24 Attending physician: Evelio Camacho Primary care physician: Stated None Hospital Course: 64 year old M with PMH of EtOH abuse, HTN, anxiety and depression, DM presents from [place] for shortness of breath. In the ED he underwent extensive evaluation. Blood pressure 105/67, heart rate 84, respiratory rate 16, SpO2 96% on 3 L nasal cannula. WBCs 3.0, hemoglobin 15.2, hematocrit 45.1, MCV 105.6, platelet 58; sodium 133, potassium 3.9, chloride 93, bicarb 32, BUN 37, creatinine 1.49, total bilirubin 1.8, AST 76, ALT 65, alkaline phosphatase 67; troponin <0.012, BNP 22. Flu A positive. Chest x-ray done in the ER shows no increased pulmonary vascularity. Brain CT showed no acute intracranial process. EKG done in the ER showed heart rate of 80, sinus rhythm. Admitted for further workup and management. Started on bronchodilators, IVF and Tamiflu. Respiratory status and renal function improved. Liver US showed no gall bladder pathology and fatty infiltration of the liver. 12/30 Patient was seen and examined. Breathing improved. CBC and BMP significant for WBC 2.2, RBC 3.84, MCV 104.4, Plt 66, Na 131, K 3.2, Cl 95, Ca 8.3. Mag 1.6. 12/31 Patient was seen and examined. Doing well. 96% on RA. Discharge Plan: Discharge back to [place]. Prescription for Tamiflu x 1.5 days, Prednisone x 5 days, DuoNeb PRN, Albuterol INH PRN sent to pharmacy. General: non toxic, no distress, appears at stated age Derm: warm, dry Head: atraumatic, normocephalic, symmetric Eyes: EOMI, no lid lag, anicteric sclera Mouth: no lip lesion, mucus membranes moist Cardiovascular: S1S2 reg, no murmur Lungs: Decreased BS bilateral, no rhonchi, no rales , no accessory muscle use Ext: no gross muscle atrophy, no edema, no contractures Neuro: no focal neuro deficits Psych: Alert, oriented, appropriate affect Discharge Diagnosis: Acute on chronic hypoxic respiratory failure due to COPD exacerbation + Flu A Hypomagnesemia Hypokalemia Transaminitis, Macrocytosis, Leukopenia and Thrombocytopenia likely related to EtOH abuse. History of alcohol abuse DM Hypertension Hyperlipidemia Resolved: ELOY This complex discharge took 35 minutes to complete. Patient Condition at Discharge: Stable Plan - Discharge Summary Discharge Rx Participant: No New Discharge Prescriptions: New Albuterol Inhaler [Ventolin Hfa Inhaler] 1 - 2 puff INHALATION Q6H PRN #1 each PRN Reason: Shortness Of Breath Ipratropium-Albuterol Nebulize [Duoneb 0.5 mg-3 mg/3 ml Soln] 3 ml INHALATION RT-Q2H PRN each PRN Reason: Shortness Of Breath Or Wheezing predniSONE [Deltasone] 40 mg PO DAILY 5 Days #10 tab Oseltamivir [Tamiflu] 75 mg PO BID #3 cap Continue Acetaminophen Tab [Tylenol] 650 mg PO Q6H PRN PRN Reason: Pain traZODone HCL [Desyrel] 50 - 150 mg PO HS PRN PRN Reason: Insomnia Thiamine [Vitamin B-1] 100 mg PO DAILY Mylanta 30 ml PO Q4H PRN PRN Reason: Indigestion Melatonin 10 mg PO HS metFORMIN HCL 1,000 mg PO BID Losartan-Hctz 50-12.5 mg [Hyzaar 50-12.5] 1 tab PO DAILY Citalopram Hydrobromide [CeleXA] 40 mg PO DAILY busPIRone HCl [Buspar] 5 mg PO TID Gabapentin [Neurontin] 300 mg PO DIRECTED Gabapentin See Taper PO DIRECTED ondansetron HCL [Zofran] 8 mg PO Q6H PRN PRN Reason: Nausea And Vomiting Multivitamins, Thera [Multivitamin (formulary)] 1 tab PO DAILY Ibuprofen [Motrin Ib] 600 mg PO Q6H PRN PRN Reason: Pain Loperamide [Imodium] 4 mg PO QID PRN PRN Reason: Diarrhea Chlorpheniramine Maleate [Chlor-Trimeton] 4 mg PO Q4H PRN PRN Reason: Allergy Symptoms Calcium Phos/D3/Magnesium/Zinc [Tmajbbw-Bbo-Vonu-Vitamin D3] 1 tab PO TID PRN PRN Reason: Muscle Pain Atorvastatin [Lipitor] 10 mg PO HS atenoloL [Tenormin] 50 mg PO BID LORazepam [Ativan] 1 - 2 mg PO Q4-6H PRN PRN Reason: withdrawal Discharge Medication List Acetaminophen Tab [Tylenol] 650 mg PO Q6H PRN 12/28/24 [History] Atorvastatin [Lipitor] 10 mg PO HS 12/28/24 [History] Calcium Phos/D3/Magnesium/Zinc [Sjscdev-Frn-Blwg-Vitamin D3] 1 tab PO TID PRN 12/28/24 [History] Chlorpheniramine Maleate [Chlor-Trimeton] 4 mg PO Q4H PRN 12/28/24 [History] Citalopram Hydrobromide [CeleXA] 40 mg PO DAILY 12/28/24 [History] Gabapentin See Taper PO DIRECTED 12/28/24 [History] Gabapentin [Neurontin] 300 mg PO DIRECTED 12/28/24 [History] Ibuprofen [Motrin Ib] 600 mg PO Q6H PRN 12/28/24 [History] LORazepam [Ativan] 1 - 2 mg PO Q4-6H PRN 12/28/24 [History] Loperamide [Imodium] 4 mg PO QID PRN 12/28/24 [History] Losartan-Hctz 50-12.5 mg [Hyzaar 50-12.5] 1 tab PO DAILY 12/28/24 [History] Melatonin 10 mg PO HS 12/28/24 [History] Multivitamins, Thera [Multivitamin (formulary)] 1 tab PO DAILY 12/28/24 [History] Mylanta 30 ml PO Q4H PRN 12/28/24 [History] Thiamine [Vitamin B-1] 100 mg PO DAILY 12/28/24 [History] atenoloL [Tenormin] 50 mg PO BID 12/28/24 [History] busPIRone HCl [Buspar] 5 mg PO TID 12/28/24 [History] metFORMIN HCL 1,000 mg PO BID 12/28/24 [History] ondansetron HCL [Zofran] 8 mg PO Q6H PRN 12/28/24 [History] traZODone HCL [Desyrel] 50 - 150 mg PO HS PRN 12/28/24 [History] Albuterol Inhaler [Ventolin Hfa Inhaler] 1 - 2 puff INHALATION Q6H PRN #1 each 12/29/24 [Rx] predniSONE [Deltasone] 40 mg PO DAILY 5 Days #10 tab 12/29/24 [Rx] Ipratropium-Albuterol Nebulize [Duoneb 0.5 mg-3 mg/3 ml Soln] 3 ml INHALATION RT-Q2H PRN each 12/31/24 [Rx] Oseltamivir [Tamiflu] 75 mg PO BID #3 cap 12/31/24 [Rx] Follow up Appointment(s)/Referral(s): None,Stated [Primary Care Provider] - 1-2 days (Please call a primary care provider for follow-up appointment.) Patient Instructions/Handouts: Influenza (DC) Discharge Disposition: HOME SELF-CARE
== END 2024-12-31 14:07 | disposition home or self-care (01) ==
LOC: EC 09:46 → 4SSUR 15:17
PROVIDERS: ADMIT Student in an Organized Health Care Education/Training Program; ATTEND Student in an Organized Health Care Education/Training Program
DX: J10.1 Influenza due to other identified influenza virus with other respiratory manifestations (principal); J96.21 Acute and chronic respiratory failure with hypoxia; J44.1 Chronic obstructive pulmonary disease with (acute) exacerbation; E87.6 Hypokalemia; E83.42 Hypomagnesemia; E87.1 Hypo-osmolality and hyponatremia; D75.89 Other specified diseases of blood and blood-forming organs; D72.819 Decreased white blood cell count, unspecified; E87.8 Other disorders of electrolyte and fluid balance, not elsewhere classified; E11.9 Type 2 diabetes mellitus without complications; E78.5 Hyperlipidemia, unspecified; F10.10 Alcohol abuse, uncomplicated; F32.A Depression, unspecified; F41.9 Anxiety disorder, unspecified; F43.10 Post-traumatic stress disorder, unspecified; I10 Essential (primary) hypertension; N17.9 Acute kidney failure, unspecified; Z79.84 Long term (current) use of oral hypoglycemic drugs; Z79.899 Other long term (current) drug therapy
CPT/HCPCS: 96365; 96366 ×2; 96372 ×4; 99285; 36415; 94640 ×7; 93005; 83880; 80053 ×2; 80048; 83605; 83735 ×2; 84484; 85025 ×3; 85610; 85730; 83036; 87636; 71046; 76705; 70450; G0378 ×4; J1644 ×4; J3475 ×2